=== PATIENT | male | born 1965 | race Hispanic/Latino ===

== ENCOUNTER 2020-10-27 18:30 | Emergency (ER) | payer BC, SELFPAY ==
[2020-10-27 18:40] VITALS: BP 144/97; PULSE 78; RESP 16; TEMP 36.8; O2SAT 99
--- NOTE | 2020-10-27 19:14 | ED.GENADULT ---
HPI - General Adult General Chief complaint: Ear Stated complaint: ear pain Time Seen by Provider: 10/27/20 19:14 Source: patient and RN notes reviewed Mode of arrival: ambulatory Limitations: no limitations History of Present Illness HPI narrative: 55-year-old male presents with complaints of right ear clogged, cracking, decreased hearing, and otalgia for the past 3 days. ?Chato reports increasing symptoms over the past 2 days. ?Peroxide without relief. ?He reported being treated at the [facility] office and told something was wrong with the RT ear, Peroxide treatment made the ear worse. ?Denies swimming or getting water into the ear. ?Denies itching or drainage. Denies URI symptoms, ?No high fevers or chills. ?Denies injury to the ear. ?No nasal drainage and congestion. ?Denies nausea, vomiting, tinnitus, and dizziness. Remains active. ?The patient reports he was diagnosed with COVID-25 September 2019. ?The patient reports he received 2 Pfizer COVID-19 vaccines. ?The patient reports he is not waiting for the results of a COVID-19 lab test. ?The patient reports he does not have weakness, fatigue, or myalgia. ?The patient reports he does not have a new or worsening cough or shortness of breath. ?The patient reports he does not have any loss of taste or smell, sore throat, abdominal pain, and diarrhea. ?Denies recent traveling. ?Denies concerns for COVID-19 or exposures. ?At this time, the patient is not suspected of having COVID-19. Some parts of this dictation were generated by voice recognition software and may contain typographical and/or grammatical inaccuracies. Related Data Home Medications Medication Instructions Recorded Confirmed alprazolam 10/27/20 amitriptyline 10/27/20 losartan 10/27/20 sertraline mg 10/27/20 Allergies Allergy/AdvReac Type Severity Reaction Status Date / Time No Known Allergies Allergy Mild Unverified 02/02/07 09:50 Review of Systems Review of Systems: CONSTITUTIONAL: Denies fever, chills, sweats. EYES: Denies visual changes, redness, discharge. ENT: Denies rhinorrhea, congestion, sore throat. Complaints of RT otalgia, clogged, crackling. CARDIOVASCULAR: Denies chest pain, palpitations, edema. RESPIRATORY: Denies dyspnea, wheezing, cough. GASTROINTESTINAL: Denies abdominal pain, nausea, vomiting, diarrhea. SKIN: Denies rash or itching. MUSCULOSKELETAL: Denies acute back pain, joint pain, or myalgia. NEUROLOGIC: Denies numbness or focal weakness. PSYCHIATRIC: Denies anxiety or depression. All systems reviewed & are unremarkable except as noted in HPI and below. [facility] Past Medical History Medical History (Updated 10/28/20 @ 00:00 by Kylah Borrego) Hypertension Surgical History Surgical History (Updated 10/27/20 @ 19:27 by EVELYN oSler) No significant past surgical history Family History Family History (Updated 10/27/20 @ 19:28 by EVELYN Soler) Father Hypertension Mother Hypertension Family history of diabetes mellitus in first degree relative Other Cerebrovascular accident Diabetes mellitus Family history of arthritis Social History Social History (Updated 10/27/20 @ 19:30 by EVELYN Soler) Smoking status: Former smoker Tobacco type: cigarettes Second hand tobacco smoke exposure: No Smoking end date: 03/09/00 Alcohol intake: current Substance use: never Substance use type: does not use Living arrangements: with family Occupation/Education: occupation Gender identity (if verbalized by the patient): Male Sexual Orientation (if Verbalized by the Patient): Straight or Heterosexual Comments At time of signature, I have reviewed and agree with the nursing past medical, surgical, social, and family history. Please see the nursing chart for further information. There is no relevant family history pertinent to the presenting complaint. Exam Narrative: GENERAL: This is a well-nourished, well-developed
== END 2020-10-27 19:46 | disposition home or self-care (01) ==
PROVIDERS: Emergency Provider Nurse Practitioner Family
DX: H60.92 Unspecified otitis externa, left ear (principal); Z87.891 Personal history of nicotine dependence; I10 Essential (primary) hypertension
CPT/HCPCS: 99203; G0463

== ENCOUNTER 2022-05-30 12:59 | Emergency (ER) | payer BC, SELFPAY ==
--- NOTE | ~2022-05-30 | CT_ITS ---
EXAMINATION: CT abdomen pelvis w con DATE: 05/30/2022 17:36 INDICATION: Left lower quadrant abdominal pain for 4 days TECHNIQUE: Computed tomography (CT) of the abdomen and pelvis was performed with 100 CC Omnipaque 350 intravenous contrast. Automated exposure control and iterative reconstruction technique were employe d. Exam dose: 835.37 mGy-cm total exam DLP. COMPARISON: None. FINDINGS: Mild dependent atelectasis in the lower lobes. Normal heart size. No pericardial or pleural effusion. Small sliding hiatal hernia. The liver, gallbladder, bile ducts, spleen, pancreas, pancreatic duct, and adrenal glands and kidneys appear normal with the exception of very small left renal cyst. Normal caliber of the abdominal aorta. No intraperitoneal or retroperitoneal or pelvic mass lesion or adenopathy or ascites. Normal appendix. There are numerous diverticula of the colon; no CT evidence of diverticulitis. No jovi wel obstruction, bowel wall thickening, pneumatosis or intraperitoneal free air. Mild prostate enlargement and calcification. The urinary bladder is unremarkable. Degenerative changes of the thoracic and lumbar spine. IMPRESSION: Diverticulosis of the colon; no CT evidence of diverticulitis Small sliding hiatal hernia Reviewed, dictated and finalized at [facility] Reviewed, dictated and finalized at [facility].
[2022-05-30 13:51] VITALS: BP 138/96; PULSE 74; RESP 16; TEMP 36.6; O2SAT 98
[2022-05-30 14:16] LABS: Basophils Absolute Auto 0.1 K/mm3 (0.0-0.1); Eosinophils Absolute Auto 0.1 K/mm3 (0-0.3); Eosinophils Percent Auto 2.1 % (0-4.4); Hematocrit 46.7 % (42.0-52.0); Immature Granulocyte Absolute 0.02 K/mm3 (0.00-0.031); Immature Granulocyte Percent A 0.3 % (0-0.5); Lymphocytes Absolute Auto 1.39 K/mm3 (0.9-3.2); Lymphocytes Percent Auto 22.9 % (18.3-44.2); Mean Corpuscular HGB Conc 34.3 g/dl (32-36); Mean Corpuscular Hemoglobin 30.7 pg (26-34); Mean Corpuscular Volume 89.5 fl (80-100); Monocytes Absolute Auto 0.5 K/mm3 (0.1-0.6); Monocytes Percent Auto 8.1 % (2.6-8.5); Neutrophils Percent Auto 65.6 % (45.5-73.1); Platelet Count Result 226 k/mm3 (150-375); Red Blood Count 5.22 M/mm3 (4.6-6.20); White Blood Count 6.1 K/mm3 (4.5-10.0)
[2022-05-30 14:25] LABS: Alanine Aminotransferase 31 U/L (6-50); Albumin Level 4.5 g/dL (3.5-5.1); Alkaline Phosphatase 83 U/L (38-126); Anion Gap 8 mmol/L (8-16); Aspartate Amino Transferase 21 U/L (17-59); Bilirubin,Total 0.7 mg/dL (0.2-1.3); Blood Urea Nitrogen 13 mg/dL (9-20); Calcium 8.9 mg/dL (8.4-10.2); Carbon Dioxide 26 mmol/L (22-30); Chloride 104 mmol/L (98-107); Estimated CRCL calculation 86 ml/min; Estimated Glomerular Filt Rate > 60; Glucose 93 mg/dL (65-110); Lipase 87 U/L (23-300); Potassium 3.9 mmol/L (3.4-5.0); Sodium 138 mmol/L (137-145)
[2022-05-30 16:51] LABS: Appearance Urine Clear (Clear); Bilirubin Urine Negative (Negative); Blood Urine Negative (Negative); Color Urine Yellow (Yellow); Glucose Urine UA Negative (Negative); Ketones Urine Negative (Negative); Leukocyte Esterase Ur Negative LEU/UL (Negative); Nitrate Urine Negative (Negative); Protein Urine Negative (Negative); Urobilinogen Urine 0.2 mg/dL (<2.0); pH Urine 5.5 (5.0-9.0)
[2022-05-30 16:54] LABS: Add Urine Microscopic? NO
[2022-05-30] MEDS: KETOROLAC 15 MG/ML VIAL (*BKC) IV PUSH (17:21)
--- NOTE | 2022-05-30 17:26 | ED.ABDPAIN ---
HPI - Abdominal Pain General Chief Complaint: Abdominal Pain Stated Complaint: left side pain Time Seen by Provider: 05/30/22 16:32 History of Present Illness HPI narrative: 57 year old male here for evaluation of sharp llq abdominal pain x 1 week. States the pain is there all of the time but is worse with movement of the thorax and to touch. Denies any other symptoms, denies chest pain, shortness of breath, diarrhea, constipation, nausea, vomiting, cough, congestion, fevers, chills, dysuria, urgency or frequency. Has not taken any medicine for his pain. Denies obvious trigger for his pain or history of previous sensation. Related Data Home Medications Medication Instructions Recorded Confirmed alprazolam 1 mg tablet 10/27/20 amitriptyline 25 mg tablet 10/27/20 losartan 100 mg tablet 10/27/20 sertraline 50 mg tablet mg 10/27/20 Allergies Allergy/AdvReac Type Severity Reaction Status Date / Time No Known Allergies Allergy Mild Unverified 02/02/07 09:50 Review of Systems Review of Systems: All systems reviewed & are unremarkable except as noted in HPI and below PMFSH Past Medical History Medical History Hypertension Surgical History Surgical History No significant past surgical history Family History Family History (Updated 10/27/20 @ 19:28 by EVELYN Soler) Father Hypertension Mother Hypertension Family history of diabetes mellitus in first degree relative Other Cerebrovascular accident Diabetes mellitus Family history of arthritis Social History Social History (Updated 10/27/20 @ 19:30 by EVELYN Soler) Smoking status: Former smoker Tobacco type: cigarettes Second hand tobacco smoke exposure: No Smoking end date: 03/09/00 Alcohol intake: current Substance use: never Substance use type: does not use Living arrangements: with family Occupation/Education: occupation Gender identity (if verbalized by the patient): Male Sexual Orientation (if Verbalized by the Patient): Straight or Heterosexual Exam Narrative: APPEARANCE: Well appearing, no pain in distress, well-nourished. Head: Normocephalic and atraumatic. EYES: PERRLA/EOMI, conjunctivae clear NOSE: No nasal drainage EARS: External ear normal in appearance THROAT: Oropharynx is clear. Mucous membranes are moist. NECK: Supple. No adenopathy, no masses. RESPIRATORY: Airway patent, respirations nonlabored. Clear to auscultation bilaterally, no rales, rhonchi, wheezing. CARDIOVASCULAR: Regular rate and rhythm without murmurs, rubs, or gallops. ABDOMINAL: Tender to palpation in left lower quadrant. Normoactive bowel sounds. Soft, nondistended. No rebound tenderness or guarding. MUSCULOSKELETAL: Extremities are warm and well-perfused. Moves all extremities well. No edema. NEURO: Normal speech. No focal neurologic deficits. SKIN: Skin is warm and dry. No rashes. PSYCHIATRIC: Normal affect/mood. Course Vital Signs Vital signs: Vital Signs Temperature 97.9 F 05/30/22 13:51 Pulse Rate 74 05/30/22 13:51 Respiratory Rate 16 05/30/22 13:51 Blood Pressure 138/96 H 05/30/22 13:51 Pulse Oximetry 98 05/30/22 13:51 Oxygen Delivery Room Air 05/30/22 13:51 Temperature 97.9 F 05/30/22 13:51 Pulse Rate 74 05/30/22 13:51 Respiratory Rate 16 05/30/22 13:51 Blood Pressure 138/96 H 05/30/22 13:51 Pulse Oximetry 98 05/30/22 13:51 Oxygen Delivery Room Air 05/30/22 13:51 MDM - Abdominal Pain MDM Narrative Medical decision making narrative: 57 year old male here for evaluation of left sided abdominal pain x 4 days. Non-toxic in appearance, normal vital signs, mild TTP in LLQ without rebound or guarding. CT with evidence of diverticulosis without diverticulitis and a small hiatal hernia. basic labs unremarkable. Patient feeling imp
[2022-05-30 18:57] VITALS: BP 131/94; PULSE 69; RESP 16; O2SAT 98
== END 2022-05-30 18:59 | disposition home or self-care (01) ==
PROVIDERS: Family Medicine; Emergency Provider Physician Assistant; PCP Family Medicine
DX: S33.5XXA Sprain of ligaments of lumbar spine, initial encounter (principal); X58.XXXA Exposure to other specified factors, initial encounter; I10 Essential (primary) hypertension; Z87.891 Personal history of nicotine dependence
CPT/HCPCS: 36415; 74177; 80053; 81003; 83690; 85025; 96374; 99284; J1885; Q9967

== ENCOUNTER 2023-01-11 14:08 | Emergency (ER) | payer BC, SELFPAY ==
--- NOTE | ~2023-01-11 | XR_ITS ---
EXAMINATION: XR hand RT min 3V, XR finger 1st RT min 2V DATE: 01/11/2023 14:42 INDICATION: Right hand pain particularly at the first interphalangeal joint post fall TECHNIQUE: 1. Posteroanterior, oblique and lateral views of the right hand were obtained. 2. Dorsal palmar, oblique and lateral views of the right thumb were obtained. COMPARISON: None. FINDINGS: 2 mm ulnar positive variance with lucency at the ulnar/proximal aspect of the lunate consistent with ulnocarpal impaction. Bone alignment is otherwise normal. No fracture. Mild osteoarthritis at the fir st carpometacarpal, first metacarpophalangeal and multiple primarily distal interphalangeal joints. S mall sesamoid bone at the palmar aspect of the first interphalangeal joint. Mild soft tissue swelling about the thumb centered dorsal to the interphalangeal joint. IMPRESSION: 1. No acute osseous abnormality. 2. Cystic change along the ulnar side of the proximal articular surface of the lunate with 2 mm ulnar positive variance consistent with ulnocarpal impaction. 3. Typical distribution of mild polyarticular osteoarthritis. Reviewed, dictated and finalized at [facility] IMPRESSION: 1. No acute osseous abnormality. 2. Cystic change along the ulnar side of the proximal articular surface of the lunate with 2 mm ulnar positive variance consistent with ulnocarpal impaction. 3. Typical distribution of mild polyarticular osteoarthritis.
--- NOTE | 2023-01-11 14:14 | ED.WOUNDLAC ---
HPI - Wound/Laceration General Chief Complaint: Wound/Laceration Stated Complaint: injured right thumb Time Seen by Provider: 01/11/23 14:12 Source: patient Mode of arrival: ambulatory Limitations: no limitations History of Present Illness HPI narrative: Chato is a 57-year-old male patient presenting to the clinic today with complaints of a injury/laceration to his right thumb. He reports yesterday he fell around 4:00 in the afternoon and extended his hand and and up possibly dislocating his right thumb. He reports he immediately felt a pop and pain and he her it up and popped it back into place. Does have a laceration to the volar aspect of the proximal thumb just below the joint. Tetanus is up-to-date per patient Related Data Home Medications Medication Instructions Recorded Confirmed alprazolam 1 mg tablet See Rx Instructions .Route .COMPLEX 10/27/20 01/11/23 losartan 100 mg tablet 100 mg PO DAILY 10/27/20 01/11/23 Allergies Allergy/AdvReac Type Severity Reaction Status Date / Time No Known Allergies Allergy Mild Verified 01/11/23 14:15 Review of Systems Review of Systems: Pertinent positives per HPI. Patient denies any fever, chills, rash, headache, visual changes, dizziness, cough, runny nose, sore throat, shortness of breath, chest pain, palpitations, nausea, vomiting, diarrhea, constipation, abdominal pain, or any urinary issues. [facility] Past Medical History Medical History Hypertension Surgical History Surgical History No significant past surgical history Family History Family History Father Hypertension Mother Hypertension Family history of diabetes mellitus in first degree relative Other Cerebrovascular accident Diabetes mellitus Family history of arthritis Social History Social History Smoking status: Former smoker Tobacco type: cigarettes Second hand tobacco smoke exposure: No Smoking end date: 03/09/00 Alcohol intake: current Substance use: never Substance use type: does not use Living arrangements: with family Occupation/Education: occupation Gender identity (if verbalized by the patient): Male Sexual Orientation (if Verbalized by the Patient): Straight or Heterosexual Comments At the time of my signature, I reviewed and agree with the nursing past medical, surgical, social, and family history. There is no relevant family history pertinent to the patient complaint. Exam Narrative: General: Well-developed, well nourished, in no apparent distress Head: Normocephalic, atraumatic. Cardio: Regular rate and rhythm, s1 and s2 normal, no murmur appreciated. Resp: Clear to auscultation bilaterally, no rhonchi, rales, wheezing or rubs. Musculoskeletal: No deformity, tender to palpation over the dorsal right thumb, no tenderness to palpation over the right wrist, normal range of motion to the right wrist, limited range of motion of the right thumb IP joint as there is swelling and pain, muscle strength strong and equal, peripheral pulse strong, no edema, no cyanosis, normal gait and station Integumentary: [employer], warm, and dry, intact without lesion, 1.5 cm gaping laceration to the volar aspect of the right thumb just below the phalanx joint Course Course Emergency Course: Portions of this record may have been created with voice recognition software. Level of Care: Express Care Visit Vital Signs Vital signs: Vital signs reviewed Procedures Laceration Laceration 1: Date: 01/11/23 Site: hand (Right thumb) Side (If applicable): right Size (cm): 1.5 Description: linear Depth: simple, single layer Local Anesthetic: lidocaine 1% Amount of anesthesia used (mL): 4
[2023-01-11 14:18] VITALS: BP 149/86; PULSE 86; RESP 16; TEMP 37.6; O2SAT 99
== END 2023-01-11 15:44 | disposition home or self-care (01) ==
PROVIDERS: Emergency Provider Nurse Practitioner Family; PCP Family Medicine
DX: S61.011A Laceration without foreign body of right thumb without damage to nail, initial encounter (principal); M24.831 Other specific joint derangements of right wrist, not elsewhere classified; W19.XXXA Unspecified fall, initial encounter; Z87.891 Personal history of nicotine dependence; I10 Essential (primary) hypertension
CPT/HCPCS: 12001; 29130; 29125; 73130; 73140; 99213; G0463